=== PATIENT | male | born 1945 | race Caucasian/White ===

== ENCOUNTER 2017-10-21 10:26 | Emergency (ER) | payer MEDICARE ==
[~2017-10-21] VITALS: Ht 175.3 cm; Wt 116.2 kg
[2017-10-21] MEDS ORDERED: CEPHALEXIN500 MG PO (11:16)
[2017-10-21] MEDS ORDERED: CLINDAMYCIN300 M1 PO (11:22)
[2017-10-21 11:33] VITALS: BP 155/86
== END 2017-10-21 11:33 | disposition home or self-care (01) ==
LOC: ED 10:26
PROC: 0HQMXZZ Repair Right Foot Skin, External Approach (ICD-10-PCS; principal; 2017-10-21)
DX: S91.114A Laceration without foreign body of right lesser toe(s) without damage to nail, initial encounter (principal); E11.9 Type 2 diabetes mellitus without complications; I10 Essential (primary) hypertension; W45.8XXA Other foreign body or object entering through skin, initial encounter

== ENCOUNTER 2017-10-31 13:06 | Emergency (ER) | payer MEDICARE ==
[~2017-10-31] VITALS: Ht 175.3 cm; Wt 116.8 kg
[~2017-10-31 13:06] MED LIST: CEPHALEXIN500 MG PO; CLINDAMYCIN300 M1 PO
[2017-10-31 13:08] VITALS: BP 135/71
== END 2017-10-31 13:30 | disposition home or self-care (01) ==
LOC: ED 13:06
DX: S91.114D Laceration without foreign body of right lesser toe(s) without damage to nail, subsequent encounter (principal)

== ENCOUNTER 2019-03-22 14:52 | Emergency (ER) | payer MEDICARE ==
[~2019-03-22] VITALS: Ht 175.3 cm; Wt 112.0 kg
[2019-03-22 15:33] VITALS: BP 143/75
[2019-03-22] MEDS ORDERED: CATAPRES0.1 MG PO (15:35)
== END 2019-03-22 15:45 | disposition home or self-care (01) ==
LOC: ED 14:52
DX: I10 Essential (primary) hypertension (principal)

== ENCOUNTER 2019-09-09 12:30 | Emergency (ER) | payer MEDICARE ==
[~2019-09-09] VITALS: Ht 175.3 cm; Wt 116.0 kg
[~2019-09-09 12:30] MED LIST changes: +CATAPRES0.1 MG PO
[2019-09-09] MEDS ORDERED: MUPIROCIN21 TOP (13:21)
[2019-09-09] MEDS ORDERED: LISINOPRIL20 MG PO (13:36)
[2019-09-09] MEDS ORDERED: ASPIRIN81 MG PO (13:37)
[2019-09-09] MEDS ORDERED: GLIPIZIDE5 MG PO (13:37)
[2019-09-09] MEDS ORDERED: [UNRECOGNIZED DRUG - REMARK] (13:39)
[2019-09-09 13:50] VITALS: BP 150/70
== END 2019-09-09 13:50 | disposition home or self-care (01) ==
LOC: ED 12:30
DX: S51.812A Laceration without foreign body of left forearm, initial encounter (principal); V86.99XA Unspecified occupant of other special all-terrain or other off-road motor vehicle injured in nontraffic accident, initial encounter; Y93.53 Activity, golf; Y92.39 Other specified sports and athletic area as the place of occurrence of the external cause; E11.9 Type 2 diabetes mellitus without complications; Z95.5 Presence of coronary angioplasty implant and graft

== ENCOUNTER 2019-11-21 | Emergency (ER) | payer MEDICARE ==
[~2019-11-21] MED LIST changes: +ASPIRIN81 MG PO; +GLIPIZIDE5 MG PO; +LISINOPRIL20 MG PO; +MUPIROCIN21 TOP; +[UNRECOGNIZED DRUG - REMARK]
[2019-11-21] MEDS ORDERED: GLIPIZIDE10 M2 PO (14:06)
[2019-11-21] MEDS ORDERED: JARDIANCE25 MG PO (14:06)
[2019-11-21] MEDS ORDERED: LISINOPRIL20 M1 PO (14:07)
[2019-11-21] MEDS ORDERED: DONEPEZIL10 MG PO (14:08)
[2019-11-21] MEDS ORDERED: TRULICITY1.5 MG/0.5 IJ (14:09)
== END 2019-11-21 14:55 | disposition home or self-care (01) ==
PROC: 0HQNXZZ Repair Left Foot Skin, External Approach (ICD-10-PCS; principal; 2019-11-21)
DX: S91.114A Laceration without foreign body of right lesser toe(s) without damage to nail, initial encounter (principal); E11.9 Type 2 diabetes mellitus without complications; W22.03XA Walked into furniture, initial encounter; Y92.009 Unspecified place in unspecified non-institutional (private) residence as the place of occurrence of the external cause; Z79.84 Long term (current) use of oral hypoglycemic drugs

== ENCOUNTER 2021-10-06 20:46 | Emergency (ER) | payer MEDICARE ==
[~2021-10-06] VITALS: Ht 175.3 cm; Wt 113.0 kg
[~2021-10-06 20:46] MED LIST changes: +DONEPEZIL10 MG PO; +GLIPIZIDE10 M2 PO; +JARDIANCE25 MG PO; +LISINOPRIL20 M1 PO; +TRULICITY1.5 MG/0.5 IJ
[2021-10-06] MEDS ORDERED: CRESTOR20 MG PO (21:48)
[2021-10-06] MEDS ORDERED: MEMANTINE HYDROC5 MG PO (21:50)
[2021-10-06] MEDS ORDERED: VITAMIN B12500 MC1 PO (21:51)
[2021-10-06] MEDS ORDERED: ADULT ASPIRIN R81 MG PO (21:51)
[2021-10-06] MEDS ORDERED: SAW PALMETTO1 CAP PO (21:52)
[2021-10-06] MEDS ORDERED: FOCUS FACTOR PO (21:54)
[2021-10-06 23:24] VITALS: BP 188/85
== END 2021-10-06 23:43 | disposition home or self-care (01) ==
LOC: ED 20:46
DX: S70.01XA Contusion of right hip, initial encounter (principal); E11.9 Type 2 diabetes mellitus without complications; F03.90 Unspecified dementia, unspecified severity, without behavioral disturbance, psychotic disturbance, mood disturbance, and anxiety; W01.0XXA Fall on same level from slipping, tripping and stumbling without subsequent striking against object, initial encounter; Y92.511 Restaurant or cafe as the place of occurrence of the external cause; Z91.81 History of falling

== ENCOUNTER 2021-10-08 07:52 | Emergency (ER) | payer MEDICARE ==
[~2021-10-08] VITALS: Ht 175.3 cm; Wt 100.0 kg
[~2021-10-08 07:52] MED LIST changes: +ADULT ASPIRIN R81 MG PO; +CRESTOR20 MG PO; +FOCUS FACTOR PO; +MEMANTINE HYDROC5 MG PO; +SAW PALMETTO1 CAP PO; +VITAMIN B12500 MC1 PO
[2021-10-08 08:34] LABS: HEMATOCRIT 42.8 % (39.0-50.0); HEMOGLOBIN 13.5 g/dl (14.0-18.0); IMMATURE GRANULOCYTES 0.2 % (0.0-5.0); MEAN CELL VOLUME 89.7 fL CALC (80.0-100.0); MEAN CORPUSCULAR HGB 28.3 pG CALC (26.0-32.0); MEAN CORPUSCULAR HGB CONC 31.5 g/dL CAL (32.0-36.0); NEUT# 9.78 thou/uL (1.82-7.42); RED BLOOD COUNT 4.77 mill/uL (4.70-6.10); RED CELL DISTRI WIDTH 14.4 % (11.5-15.5)
[2021-10-08 08:34] LABS: URINE BILIRUBIN - DIPSTICK NEGATIVE (NEGATIVE); URINE BLOOD DIPSTICK MODERATE (NEGATIVE); URINE COLOR YELLOW; URINE GLUCOSE - DIPSTICK >=1000 mg/dL (NEGATIVE); URINE KETONE 15 mg/dL (NEGATIVE); URINE LEUK ESTERASE NEGATIVE (NEGATIVE); URINE PH 5.5 (4.5-8.0); URINE PROTEIN - DIPSTICK 30 mg/dL (NEG-TRACE); URINE SPECIFIC GRAVITY 1.025; URINE UROBILINOGEN - DIPSTICK 0.2 E.U./dL (0.2)
[2021-10-08 08:49] LABS: URINE NITRITE - DIPSTICK NEGATIVE (Negative)
[2021-10-08 08:50] LABS: URINE WBC 0-2 WBC/hpf (0-5)
[2021-10-08 08:52] LABS: ALBUMIN 3.9 g/dL (3.2-5.0); CREATININE 1.5 mg/dL (0.7-1.3); POTASSIUM 4.8 mmol/l (3.5-5.1); TOTAL PROTEIN 6.9 g/dL (6.3-8.2)
[2021-10-08 08:53] LABS: MAGNESIUM 2.3 mg/dL (1.6-2.3)
[2021-10-08 08:54] LABS: BILIRUBIN, TOTAL 1.1 mg/dL (0.0-1.4)
[2021-10-08 08:57] LABS: ACT PARTIAL THROMBO TIME 22.4 SECONDS (20.0-32.5); PROTHROMBIN TIME 10.8 SECONDS (9.0-12.5)
[2021-10-08 11:05] VITALS: BP 152/80
--- NOTE | 2021-10-10 09:39 | NUR ---
PRELIMINARY BLOOD CX SHOWS BACILLUS SPECIES IN 1 SET. PER EMERALD IN MICRO, THIS IS A DEFINITE CONTAMINANT.
== END 2021-10-08 11:50 | disposition short-term general hospital (02) ==
LOC: ED 07:52
PROVIDERS: Family Medicine
DX: S32.401A Unspecified fracture of right acetabulum, initial encounter for closed fracture (principal); S32.591A Other specified fracture of right pubis, initial encounter for closed fracture; E11.9 Type 2 diabetes mellitus without complications; F03.90 Unspecified dementia, unspecified severity, without behavioral disturbance, psychotic disturbance, mood disturbance, and anxiety; W19.XXXA Unspecified fall, initial encounter; Y92.009 Unspecified place in unspecified non-institutional (private) residence as the place of occurrence of the external cause; Z79.84 Long term (current) use of oral hypoglycemic drugs; Z20.822 Contact with and (suspected) exposure to COVID-19
CPT/HCPCS: Q9967